=== PATIENT | female | born 1960 | race Native Hawaiian/Other Pacific Islander ===

== ENCOUNTER 2020-07-14 16:16 | Outpatient (CLI) | payer BC, OTHER | END 2020-07-14 20:18 | disposition home or self-care (01) | LOC: INF 16:16 | PROVIDERS: ATTEND Internal Medicine | DX: Z23 Encounter for immunization (principal) | CPT/HCPCS: 96372 ==

== ENCOUNTER 2020-08-11 15:15 | Outpatient (CLI) | payer BC, OTHER | END 2020-08-11 21:35 | disposition home or self-care (01) | LOC: INF 15:15 | PROVIDERS: ATTEND Internal Medicine | DX: Z23 Encounter for immunization (principal) | CPT/HCPCS: 96372 ==